=== PATIENT | female | born 1970 | race Caucasian/White ===

== ENCOUNTER → 2017-01-08 | Day surgery (SDC) | payer OTHER ==
[~2017-01-08] MED LIST: ALPRAZOLAM PO; AMPHETAMINE SAL10 M1 PO; CALCIUM + D 6001 TA1 PO; COLACE50 MG PO; FLORINEF0.1 M1 PO; HYDROCODON-ACE1 EAC5 PO; HYDROCORTISONE10 M1 PO; IBUPROFEN PO; KEFLEX PO; LIBRIUM PO; LIDODERM30 EA TOP; LORTAB 7.5-5001 TAB PO; MARINOL5 MG PO; METHYLPREDNISOLO4 M1 PO; MUCINEX DM1 TAB.SR . PO; NEXIUM PO; PERCOCET 10/3251 TAB PO; PROTONIX PO; PULMICORT200 MCG/AE INH; TUMS200 MG PO; VITAMIN B 12 INJ; VITAMIN C250 M1 PO; VITAMIN D400 UNI1 PO; XANAX2 MG PO; ZYRTEC10 M1 PO; [UNRECOGNIZED DRUG - OTHER]; [UNRECOGNIZED DRUG - OTHER] PO
--- NOTE | ~2017-01-08 | OR ---
Unit #: [id number] #: [id number] Patient: NUSRAT TREVIZO [id number] [address] [id number] O MR#: [id number] NAME: NUSRAT TREVIZO ROOM: Date of Procedure: 01/08/2017 Admission Date: 01/08/2017 Surgeon: Tom Akins M.D. : 1970 Attending Physician: Tom Akins M.D. Primary Care Physician: Donny Crowley M.D. OPERATIVE REPORT ATTENDING PHYSICIAN Dr. Donny Crowley. PREOPERATIVE DIAGNOSES Epigastric pain, dyspepsia, and right upper quadrant abdominal pain. PROCEDURES PERFORMED Upper gastrointestinal endoscopy and biopsy. POSTOPERATIVE DIAGNOSES 1. The patient had grade 2 distal erosive esophagitis. 2. There was prepyloric mild antral superficial hemorrhagic gastritis. 3. Rest of the examination up to third part of duodenum was normal. A biopsy was obtained from the antrum for CLOtest. RECOMMENDATIONS The patient will be started on pantoprazole 40 mg p.o. daily. She will be followed up in the office in 10 to 12 weeks' time. SEDATION USED MAC. DESCRIPTION OF PROCEDURE Following detailed explanation of potential risks and complications of an upper endoscopy, namely perforation, bleeding, and complication related to sedation, the patient was brought to GI lab and laid in the left lateral decubitus position. Lubricated tip of the Olympus video upper endoscope was passed through the bite block into the proximal esophagus under direct vision. The entire esophageal mucosa was examined. The patient was noted to have grade 2 distal erosive esophagitis. The scope was then advanced into the gastric cavity and the latter was insufflated. Mucosa of the fundus, body, and antrum was examined and a superficial hemorrhagic gastritis was noted in the antral area. Pylorus was intubated with visualization of the normal duodenal bulb and second and third part of the duodenum. Upon withdrawal and retroflexion; incisura, cardia, and greater curve was examined and biopsy was obtained from the antrum for CLOtest. The scope was then withdrawn in the distal esophagus. The entire esophageal mucosa was examined all the way up to pharynx. No additional findings were noted. The patient tolerated the procedure without any postprocedure complications. Unit #: [id number] #: [id number] Patient: NUSRAT TREVIZO Dictated by... Venus Barker/atul TD: 01/08/2017 16:30 JOB #: [id number] OPERATIVE REPORT Page 1 of 1 X Tom Akins MD X PROCEDURE OPERATIVE NOTE
== END | disposition home or self-care (01) ==
LOC: COPS 12:29
PROVIDERS: Internal Medicine Gastroenterology
PROC: 0DB78ZX Excision of Stomach, Pylorus, Via Natural or Artificial Opening Endoscopic, Diagnostic (ICD-10-PCS; principal; 2017-01-08 14:00)
DX: K20.8 Other esophagitis (principal); K29.61 Other gastritis with bleeding; E21.3 Hyperparathyroidism, unspecified; I49.9 Cardiac arrhythmia, unspecified; E27.1 Primary adrenocortical insufficiency; Z79.899 Other long term (current) drug therapy; E11.22 Type 2 diabetes mellitus with diabetic chronic kidney disease; N18.9 Chronic kidney disease, unspecified; D63.1 Anemia in chronic kidney disease; F17.200 Nicotine dependence, unspecified, uncomplicated; Z88.1 Allergy status to other antibiotic agents; Z88.5 Allergy status to narcotic agent; Z88.2 Allergy status to sulfonamides; Z88.8 Allergy status to other drugs, medicaments and biological substances
CPT/HCPCS: 82947; 84703; 87077